=== PATIENT | female | born 1960 ===

== ENCOUNTER 2016-10-30 07:35 | Emergency (ER) | payer BC ==
[2016-10-30] MEDS ORDERED: KETOROLAC 15 MG/1 ML VIAL IVP ONE (07:49)
[2016-10-30] MEDS ORDERED: ONDANSETRON 4 MG/2 ML VIAL IVP ONE (07:49)
[2016-10-30] MEDS ORDERED: Sodium Chloride 0.9% 1,000 ML PRIMARY IV ONE (07:49)
--- NOTE | 2016-10-30 07:53 | PDOC ---
Female Problem HPI - General Chief Complaint: Genitourinary Complaint Stated Complaint: left flank pain radiating to groin Date Seen by Provider: 10/30/16 Time Seen by Provider: 07:48 Source: POSITIVE: Patient Exam Limitations: POSITIVE: No limitations Nurse's Notes Reviewed & Considered: Yes - History of Present Illness Initial Comments: This very pleasant 56-year-old female comes in today with a chief complaint of left costovertebral angle pain. Patient awoke in her normal state of health this morning, and as she was taking a shower felt as though someone stabbed her in the back. The pain is in a crescendo decrescendo type pattern, radiates from her left costovertebral angle to her left groin. She's had 3 episodes of emesis this morning. She denies any headache, sore throat, no chest pain or shortness of breath. She denies any fever, but has had chills and sweats since her pain began, no diarrhea. No hematuria or dysuria. Body Location Affected: REPORTS: Abdomen, Back Timing: REPORTS: Abrupt Duration: 1 hour Severity: Severe Quality: REPORTS: "Pain", Stabbing, Throbbing Location of Pain: REPORTS: Left, Flank Pain Urinary Symptoms: REPORTS: Other (hematuria or dysuria) Similar Symptoms Previously: No Recent Care Received: REPORTS: Denies Any Prior Injuries Related to Current Complaint?: No - Patient Home Medications Home Medications: Home Medications NK [No Home Medications Reported] 10/30/16 - Patient Allergies Allergies/Adverse Reactions: Allergies Allergy/AdvReac Type Severity Reaction Status Date / Time No Known Allergies Allergy Verified 10/30/16 07:46 ROS - Limitations ROS Limitations: No Limitations Constitution: REPORTS: Chills, Diaphoresis Cardiovascular: REPORTS: Denies Cardiac Symptoms Respiratory: REPORTS: Denies Resp Symptoms Neurological: REPORTS: Denies Neuro Symptoms Gastrointestinal: REPORTS: Abdominal Pain, Nausea, Vomitting Endocrine: REPORTS: Denies Symptoms Musculoskeletal: REPORTS: Back Pain Genitourinary: REPORTS: Flank Pain (Left sided) Eyes: REPORTS: Denies Symptoms ENT: REPORTS: Denies Symptoms Skin: REPORTS: Denies Skin Symptoms Lympathic: REPORTS: Denies Lympathic Symptoms Immunologic: POSITIVE: Denies Symptoms Psychiatric: POSITIVE: Denies Psych Symptoms Female Genitourinary Exam - General Appearance General Appearance: POSITIVE: Alert, Cooperative, No Evidence of Trauma, Moderate Distress - HEENT HEENT: POSITIVE: Head Inspection Nml, Eyes Inspection Nml, Ears Inspection Nml, Nose Inspection Nml, Oral/Dental Inspect. Nml, Pharynx Inspect. Nml, PERRL, EOMI - Neck Neck: POSITIVE: Normal Inspection, No Apparent Injury - Respiratory Respiratory: POSITIVE: No Respiratory Distress, Breath Sounds Normal, Chest Non- Tender - Cardiovascular Cardiovascular: POSITIVE: Regular Rate and Rhythm, Heart Sounds Normal, Equal Pulses, Strong Pulses - Abdomen Abdomen: POSITIVE: Soft, Normal Bowel Sounds, Tenderness (Left lower quadrant and flank) - Back Back: POSITIVE: CVA Tenderness (L) - Skin Skin: POSITIVE: Intact, Normal For Race, Warm, Dry, No Rash - Extremities Extremity: Non-Tender: (All Extremities), Normal ROM: (All Extremities), Normal Inspection: (All Extremities), Pelvis Stable: (All Extremities) - Neurological / Psychological Neurological: POSITIVE: Affect Apporpriate, Oriented X3, Motor Normal, Sensation Normal Female Genitourinary Progress - Results Reviewed by me Xrays/CTs/US Reviewed by me: Yes Discussed with Radiologist: Yes Lab Results Reviewed: Yes Lab Results:: Laboratory Results 10/30/16 Range/Units 07:47 WBC 7.15 (4.8-10.8) 10^3/uL RBC 4.76 (4.20-5.40) 10^6/uL Hgb 15.2 (12.0-16.0) g/dL Hct 45.3 (37.0-47.0) % MCV 95.2 (81-99) FL MCH 31.9 H (27-31) PG MCHC 33.6 (33-37) g/dL RDW Std Deviation 44.3 (39-50) fL RDW Coeff of Madan 13.1 (11.5-14.5) % Plt Count 260 (140-350) 10*3/uL MPV 11.1 (7.4-12.2) FL Immature Gran % (Auto) 0.4 (0-5) % Neut % (Auto) 58.8 (50-80) % Lymph % (Auto) 25.3 (10-50) % [place] % (Auto) 9.7 (5-15) % Eos % (Auto) 4.3 (0-8) % Baso % (Auto) 1.5 H (0-1) % Immature Gran # (Auto) 0.03 10*3/UL Neut # (Auto) 4.20 10*3/UL Lymph # (Auto) 1.81 10*3/uL [place] # (Auto) 0.69 (0.3-0.8) 10*3/UL Eos # (Auto) 0.31 10*3/UL Baso # (Auto) 0.11 10*3/UL WBC Morphology Comment Normal morphology (NORM) Plt Morphology Comment Normal morphology (NORM) RBC Morph Comment Normal morphology (NORM) Sodium 143 (135-145) meq/L Potassium 3.8 (3.8-5.2) meq/L Chloride 109 (98-112) meq/L Carbon Dioxide 23 (23-33) meq/L Anion Gap 11 (5-20) BUN 13 (7-22) mg/dL Creatinine 0.9 (0.50-1.20) mg/dL Estimated GFR > 60 (>60 ml/min/1.73m(2)) BUN/Creatinine Ratio 14.44 (6-20) Glucose 169 H (78-110) mg/dL Calculated Osmolality 299.0 H (267-292) mOsm/kg Calcium 9.1 (8.7-10.7) mg/dL Magnesium 2.1 (1.6-2.4) mg/dL Total Bilirubin 0.5 (0.3-1.2) mg/dL AST 46 H (8-39) IU/L ALT 37 (9-52) IU/L Alkaline Phosphatase 130 H (38-126) IU/L C-Reactive Protein 0.7 (0.0-0.9) mg/dL Total Protein 7.5 (6.1-8.0) g/dL Albumin 4.2 (3.5-4.8) g/dL Globulin 3.2 (2.50-4.10) g/dL Albumin/Globulin Ratio 1.30 (1.3-2.0) mg/g Ur Collection Type Clean catch urine Urine Color Yellow Urine Clarity Clear (CLEAR) Urine pH 5.5 (5.0-8.5) Ur Specific [place] 1.025 (1.005-1.030) Urine Protein Negative (NEG) mg/dl Urine Glucose (UA) Negative (NEG) mg/dL Urine Ketones Trace (NEG) Urine Occult Blood Large H (NEG) Urine Nitrate Negative (NEG) Urine Bilirubin Negative (NEG) Urine Urobilinogen 0.2 (0.2) EU/dL Ur Leukocyte Esterase Negative (NEG) Urine RBC 4-50 (NONE) /hpf Urine WBC Rare (NONE) Ur Squamous Epith Cells None (NONE) Ur Renal Epithelial Cell None (NONE) Urine Crystals None Urine Bacteria Few (NONE) Urine Casts None (NONE) Urine Mucus None (NONE) Urine Trichomonas None (NONE) Urine Yeast None (NONE) Ur Culture Indicated? Culture not set - Patient's Progress Pain Medication Addressed: POSITIVE: Yes Re-Examine Time: 08:37 Status: POSITIVE: Improved MDM / ED Course: Patient was examined, an IV started, blood drawn and sent to the lab for studies , radiographic examinations were obtained. Initially patient received 15 mg of IV Toradol, Zofran, and normal saline. Her pain has significantly improved but was transient. Her pain began to return after she returned from CT examination. At that time she was provided with 4 mg of IV morphine sulfate. This resulted in improvement of her pain. Findings: CBC is unremarkable, urinalysis shows blood present with few bacteria. CT scan reveals a 2 mm distal ureteral stone at the UVJ causing mild hydro-ureter and hydronephrosis. Comprehensive metabolic panel is unremarkable , CRP is normal. Assessment: Renal colic with UVJ stone causing partial obstruction and mild hydronephrosis and hydroureter. Plan: Discharge home, Flomax, increase hydration, Monroe for breakthrough pain. She is to strain her urine. If she retrieves a stone she is to save this for evaluation by urology. She is to follow-up with urology in [facility] calling for an appointment later today. Appointment should be sometime in the next week. She is to return to the emergency room if she has fevers, inability to void, increased pain. - Consult Counseled: POSITIVE: Patient, RE: Lab Results, RE: Radiology Results, RE: DX, RE : Need for F/U Patient Care Time - Estimated PCT Patient Care Time (In Minutes): 30 Vital Signs - Recent Vital Signs Vital Signs: Vital Signs (Last 8 hours) Temp Pulse Resp BP Pulse Ox 10/30/16 07:35 96.7 F L 72 19 162/102 97 - VS Reviewed Vital Signs Reviewed: Yes Discharge Clinical Impression: Renal colic Discharge Disposition: Discharged to Home Condition: Stable Patient Instructions Given at Discharge: Kidney Stones (ED) Additional Instructions: You have a left distal kidney stone that is causing some mild hydroureter and hydronephrosis. You've been prescribed Flomax, Keflex, and Monroe. Your strain your urine. Retrieve the stone and take it to your urology appointment. Your to call the urology doctor later today for an appointment later this week for follow-up. Return to the emergency room if you have fevers, increased pain, or decreased ability to void urine. Follow Up With: NONE,NONE [Primary Care Provider] -
[2016-10-30] MEDS ORDERED: ONDANSETRON 4 MG/2 ML VIAL ONE (07:55)
[2016-10-30] MEDS ORDERED: KETOROLAC 15 MG/1 ML VIAL ONE (07:55)
[2016-10-30 07:58] VITALS: TEMP 96.7
[2016-10-30 07:59] LABS: BASOPHILS # (AUTO) 0.11 10*3/UL; BASOPHILS % (AUTO) 1.5 % (0-1); EOSINOPHILS # (AUTO) 0.31 10*3/UL; EOSINOPHILS % (AUTO) 4.3 % (0-8); HEMATOCRIT 45.3 % (37.0-47.0); HEMOGLOBIN 15.2 g/dL (12.0-16.0); LYMPHOCYTES # (AUTO) 1.81 10*3/uL; MEAN CORPUSCULAR HEMOGLOBIN 31.9 PG (27-31); MEAN CORPUSCULAR HGB CONC 33.6 g/dL (33-37); MEAN CORPUSCULAR VOLUME 95.2 FL (81-99); MEAN PLATELET VOLUME 11.1 FL (7.4-12.2); MONOCYTES # (AUTO) 0.69 10*3/UL (0.3-0.8); MONOCYTES % (AUTO) 9.7 % (5-15); NEUTROPHILS % (AUTO) 58.8 % (50-80); RED BLOOD COUNT 4.76 10^6/uL (4.20-5.40)
[2016-10-30 08:08] LABS: BILIRUBIN,URINE NEGATIVE (NEG); CLARITY,URINE CLEAR (CLEAR); COLOR,URINE YELLOW; GLUCOSE, URINE (UA) NEGATIVE (NEG); NITRATE,URINE NEGATIVE (NEG); OCCULT BLOOD,URINE LARGE (NEG); PH,URINE 5.5 (5.0-8.5); PROTEIN,URINE NEGATIVE (NEG); UROBILINOGEN,URINE 0.2 EU/dL (0.2)
[2016-10-30 08:09] LABS: PLATELET MORPHOLOGY COMMENT NORMAL MORPHOLOGY (NORM); RBC MORPHOLOGY COMMENT NORMAL MORPHOLOGY (NORM); WBC MORPHOLOGY COMMENT NORMAL MORPHOLOGY (NORM)
[2016-10-30 08:15] LABS: BACTERIA,URINE FEW; URINE SAMPLE TYPE CLEAN CATCH URINE; WBC,URINE RARE
[2016-10-30] MEDS ORDERED: MORPHINE SULFATE 4 MG/1 ML IVP ONE (08:21)
--- NOTE | 2016-10-30 08:25 | DI ---
CT ABDOMEN/PELVIS W/O CONTRAST,10/30/2016 7:49 AM: Clinical History: Left costovertebral angle pain. Previous Exam: None at this facility. Findings: Multiple helically acquired CT images are obtained through the abdomen and pelvis without contrast. Lung bases are clear. There is a 2 mm stone within the left distal ureter causing moderate left hydro nephrosis. The appendix is normal. The urinary bladder is unremarkable. There is a renal parenchymal stone measuring 2 mm within the left kidney. Patient is status post chol ecystectomy. The pancreas and spleen are unremarkable. There is no mesenteric nor retroperitoneal lym phadenopathy. Impression: 2 mm distal left ureteral vesicular junction stone causing minimal left hydronephrosis and hydrourete r.
[2016-10-30] MEDS ORDERED: TAMSULOSIN 0.4 MG CAPSULE PO ONE (08:32)
[2016-10-30 08:34] LABS: BLOOD UREA NITROGEN 13 mg/dL (7-22); BUN/CREATININE RATIO 14.44 (6-20); C-REACTIVE PROTEIN 0.7 mg/dL (0.0-0.9); CALCIUM 9.1 mg/dL (8.7-10.7); EST GLOMERULAR FILTRATION > 60 (>60 ml/min/1.73m(2)); MAGNESIUM 2.1 mg/dL (1.6-2.4); SERUM ALBUMIN 4.2 g/dL (3.5-4.8)
[2016-10-30] MEDS ORDERED: HYDROcodone-APAP 5 MG -325 MG TABLET PO ONE (08:53)
[2016-10-30 09:04] VITALS: RESP 14
[2016-10-30 22:51] LABS: RBC,URINE 40-50 /hpf
== END 2016-10-30 09:55 | disposition home or self-care (01) ==
LOC: ER 07:35
DX: N23 Unspecified renal colic (principal); M54.5 Low back pain; R11.2 Nausea with vomiting, unspecified; R10.32 Left lower quadrant pain
CPT/HCPCS: 74176; 80053; 81001; 81003; 83735; 85025; 86140; 96361; 96374; 96375; 99283; J1885; J2270; J2405; J7030